=== PATIENT | male | born 1970 | race Caucasian/White ===

== ENCOUNTER 2025-07-15 13:56 | Emergency (ER) | payer SELFPAY ==
--- NOTE | ~2025-07-15 | CT_ITS ---
EXAMINATION: CT CERVICAL SPINE WITHOUT CONTRAST CLINICAL INFORMATION: head injury at work COMPARISON: None available. TECHNIQUE: Axial imaging was performed from the base of the skull through T2 without IV contrast. Coronal and sagittal reformatted images were generated from the original axial data set. ALARA: The examination used one or more of the following radiation dose reduction techniques: Automated exposure control, iterative reconstruction, and/or adjustment of mA and/or KV. FINDINGS: There is straightening of the cervical lordosis. There is no prevertebral soft tissue swelling. No acute fracture is identified. Mild disc space narrowing is present. Soft tissues and lung apexes are unremarkable. CT/CT cervical spine wo IV con IMPRESSION: No acute abnormality. There is straightening of the expected cervical lordosis. This can be idiopathic, but can also be related to degenerative change, muscle spasm, or posterior soft tissue injury. Electronically signed by: Asael Gallegos MD 07/15/2025 04:49 PM EST
--- NOTE | ~2025-07-15 | CT_ITS ---
EXAMINATION: CT HEAD WITHOUT CONTRAST CLINICAL INFORMATION: pipe hit head. scalp laceration COMPARISON: None available. TECHNIQUE: Contiguous axial imaging was performed from the skull base to vertex without intravenous administration of contrast. This CT examination was performed using dose optimization techniques as appropriate, variously including the following: *Automated exposure control *Adjustment of mA and/or kV according to patient size (this includes techniques or standardized protocols for targeted exams where dose is matched to indication/reason for exam; i.e. extremities or head) *Use of iterative reconstruction technique FINDINGS: There is no acute ischemic change. There is no intracranial hemorrhage. There is no mass-effect or midline shift. Basal cisterns and ventricles are within normal limits for age/cerebral volume. Orbits are symmetrical and unremarkable. Paranasal sinuses and mastoid air cells are pneumatized. There are no bony abnormalities. CT/CT head/brain wo IV con IMPRESSION: No acute intracranial abnormality. Electronically signed by: Asael Gallegos MD 07/15/2025 04:45 PM [facility]
[2025-07-15 14:16] VITALS: BP 130/92; PULSE 88; RESP 16; O2SAT 95; BMI 30.7
--- NOTE | 2025-07-15 14:16 | ED.GENADULT ---
HPI - General Adult General Chief complaint: Head Injury Stated complaint: head inj at work, walked into pipe. Time Seen by Provider: 07/15/25 19:32 Source: patient Mode of arrival: ambulatory Limitations: no limitations History of Present Illness ED Provider: DR. Peralta HPI narrative: 55-year-old male came for evaluation of head injury, patient had hers head in the bike at work causing about 10 cm laceration on the top of his head, patient declined LOC, no use of anticoagulation, no neck pain, no weakness, no numbness, no CP, no SOB, no abdominal pain. Patient do not remember the last booster for his tetanus shot. Related Data Allergies Allergy/AdvReac Type Severity Reaction Status Date / Time No Known Allergies Allergy Verified 07/15/25 14:17 Review of Systems Review of Systems: All other systems are reviewed and are negative Constitutional: Reports as per HPI and Reports no additional constitutional complaints Eyes: Reports as per HPI and Reports no additional eye complaints Reports system reviewed and no additional complaints, except as documented Cardiovascular: Reports as per HPI and Reports no additional cardiovascular complaints Respiratory: Reports as per HPI and Reports no additional respiratory complaints Gastrointestinal: Reports as per HPI and Reports no additional gastrointestinal complaints Genitourinary: Reports no additional female genitourinary complaints Musculoskeletal: Reports no additional musculoskeletal complaints Skin/Breast: Reports system reviewed and no additional complaints, except as docu Psychiatric: Reports no additional psychiatric complaints Endocrine: Reports no additional endocrine complaints Hematologic/Lymphatic: Reports no additional hematologic/lymphatic complaints Allergic/Immunologic: Reports no additional allergic/immunologic complaints Reports system reviewed and no additional complaints, except as documented and Reports Abnormal speech present PMFSH Social History Social History Advance Directives: No Advance Directives Information Provided: No Advance Directives on File: No Physical Exam ED Vital Signs: Vital Signs - 24 hr 07/15/25 14:16 07/15/25 20:16 07/15/25 20:22 Temperature 98.1 F 98.1 F Pulse Rate 88 73 73 Respiratory Rate 16 16 16 Blood Pressure 130/92 H 132/87 132/87 Pulse Oximetry 95 96 96 Oxygen Delivery Method Room Air Room Air Room Air BMI result Body Mass Index 30.7 Vital signs have been reviewed and appear to be correct. Blood pressure elevated. Heart rate normal. Respiratory rate normal. Temperature normal. Oxygen saturation normal. Appearance: Alert. Oriented X3. No acute distress. Head: Normal external exam. Normocephalic. 10 cm laceration affecting left parietofrontal area,No Lopez signs noted. No raccoon eyes noted Eyes: PERRLA. EOMI. Conjunctiva and sclera normal. Eyelids normal. ENT: TM's Normal. Pharynx normal. Uvula midline. Moist mucous membranes. No trismus noted. No drooling noted. No muffled voice noted. Neck: Normal inspection. Neck supple. FROM. No adenopathy. Thyroid Normal. No meningeal signs. No neck mass noted. CVS: Normal heart rate and rhythm. Heart sound normal. No murmurs noted. Pulses normal throughout. Respiratory: No respiratory distress. Painless inspiration. Breath sounds normal. No wheezes/rales/rhonchi noted. Chest nontender. No accessory muscle usage noted or decreased air movement noted. Abdomen: Soft and nontender. Bowel sounds normal in all 4 quadrants. No distention noted. No organomegaly noted. No visible injury noted. Back: No CVA tenderness. Full range of motion noted. Skin: Skin warm and dry. Normal skin color. Normal skin turgor. No rashes/lesions/lacerations noted. Extremities: No lower extremity edema. Extremities exhibit normal range of motion. Extremities nontender. Neuro: GCS of 15 Mental status: Normal attention, orientation, memory, and affect. Cranial nerves: Pupils are equal, round and reactive to light, EOMI, visual yang are fall, face is symmetric, facial sensations are normal. Motor examination normal muscle tone, strength to 4 extremities. DTR are +2, planter's are flexor. Sensory exam; normal coordination, no ataxia, gait stable. Cerebellar exam: [id number] and [id number] is normal. Extrapyramidal system: No tremors, no rigidity with normal facial expressions. Pronator drift not present Course Course Course Narrative: RmE: 55-year-old male presents to ED for head injury that occurred at work. Patient states walking to a metal pipe which hit his head caused a laceration. Cat scans ordered. Unknown last Tdap Reevaluation(s) Reevaluation #1: head injury was scalp laceration please refer to procedure note for laceration repair, GCS of 15, normal neuro exam, will discharge to follow-up with PCP. Time: 19:56 Medications Administered Discontinued Medications Generic Name Dose Route Start Last Admin Trade Name Tex PRN Reason Stop Dose Admin Acetaminophen 975 mg 07/15/25 20:17 07/15/25 20:20 Acetaminophen 325 Mg Tablet PO 07/15/25 20:18 975 mg ONCE ONE Administration Diphtheria/Tetanus/Acell Pertussis 0.5 ml 07/15/25 19:51 07/15/25 20:12 Diphth,Pertus(Acell),Tet Adult 0.5 Ml Syringe IM 07/15/25 19:52 0.5 ml .ONCE ONE Administration Lidocaine HCl 10 ml 07/15/25 19:37 07/15/25 20:13 Lidocaine Hcl 1 % Mpf 5 Ml Vial SUBCUT 07/15/25 19:38 10 ml ONCE ONE Administration Procedures Laceration Laceration 1: Site: scalp Side (If applicable): left Size (cm): 10 Description: linear Depth: simple, single layer Local Anesthetic: lidocaine 1% Amount of anesthesia used (mL): 10 Pre-repair: wound explored and irrigated extensively Skin layer closed with: devang Number of closing items:: 13 Technique: devang Medical Decision Making Differential Diagnosis Differential Diagnoses: The differential diagnosis associated with the presentation includes ( intracranial injury, cervical spine injury, chest injury, back injury, extremity injuries, abdominal injuries, Tetanus update.) Admission/Observation Consideration of admission/observation: Escalation of care including admission/observation considered Independent Interpretation I performed an independent interpretation of an: CT Scan ( Head/cervical spine: No acute pathology.) Radiology Impression Discussion of test interpretation with radiology: I have reviewed the radiologist's reading. Discharge Plan Discharge Clinical Impression: Closed head injury, Laceration of scalp Patient Disposition: Home, Self-Care Instructions: Laceration (ED), Head Injury (ED) Additional Instructions: staple removal in 7-10 days. Referrals: Ana Desouza MD [Primary Care Provider, Medical] Stand Alone Forms: Work/School Release Interventions: ED Discharge Assessment Last Done: 07/15/25 20:22 Discharge Date/Time: 07/15/25 20:23 Print Language: Estonian
[2025-07-15] MEDS: Diphth,Pertus(ACell),Tet Adult 0.5 ML SYRINGE IM (20:12)
[2025-07-15] MEDS: Lidocaine HCl 1 % MPF 5 ML VIAL 10 ML SUBCUT (20:13)
[2025-07-15 20:16] VITALS: BP 132/87; PULSE 73; RESP 16; TEMP 36.7; O2SAT 96
[2025-07-15 20:22] VITALS: BP 132/87; PULSE 73; RESP 16; TEMP 36.7; O2SAT 96
== END 2025-07-15 20:23 | disposition home or self-care (01) ==
PROVIDERS: Emergency Provider Emergency Medicine; PCP Family Medicine
DX: S01.01XA Laceration without foreign body of scalp, initial encounter (principal); M54.2 Cervicalgia; R51.9 Headache, unspecified; W45.8XXA Other foreign body or object entering through skin, initial encounter; W22.09XA Striking against other stationary object, initial encounter; Y93.9 Activity, unspecified; Y92.9 Unspecified place or not applicable; Y99.0 Civilian activity done for income or pay; Z23 Encounter for immunization
CPT/HCPCS: 12004; 70450; 72125; 90471; 90715; 99283; 99284; J2003

== ENCOUNTER → 2025-07-15 14:15 | Outpatient (BNV) | payer SELFPAY | PROVIDERS: PCP Family Medicine; Visit Provider Radiology Diagnostic Radiology | DX: S09.90XA Unspecified injury of head, initial encounter (principal); S01.01XA Laceration without foreign body of scalp, initial encounter; W22.8XXA Striking against or struck by other objects, initial encounter | CPT/HCPCS: 70450; 72125 ==